=== PATIENT | male | born 1980 | race Caucasian/White ===

== ENCOUNTER 2021-09-10 08:49 | Emergency (ER) | payer BC, OTHER ==
[~2021-09-10] VITALS: Ht 168.9 cm; Wt 80.7 kg
[2021-09-10 08:51] VITALS: BP 149/91
--- NOTE | 2021-09-10 08:58 | NUR ---
Pt ambulated to bed 12 with steady/even gait
--- NOTE | 2021-09-10 09:08 | NUR ---
40 Y/O M BIB SPOUSE FROM HOME, C/O SOB AND CP THAT STARTED LAST NIGHT WHILE PUTTING SON TO BED. PT REPORTS 4/10, SHARP/INTERMITTENT, NON-RADIATING PAIN TO STERNUM. PT STATES PAIN WORSENS WITH INHALATION. DENIES FEVER, CHILLS, COUGH, NAUSEA, VOMITING, DIARRHEA, ABDOMINAL PAIN. NO MEDS PRIOR TO ARRIVAL. DENIES ANYONE ELSE SICK IN THE HOUSEHOLD. CAP REFILL IMMEDIATE; SKIN PINK/WARM/DRY. 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 SPO2 99% ON ROOM AIR. BED LOCKED IN LOWEST POSITION, SIDE RAILS X1. PMH: DENIES NKA MED: DENIES
--- NOTE | 2021-09-10 09:13 | NUR ---
EMT at bedside for EKG
[2021-09-10] MEDS ORDERED: ASPIRIN 325 MG TAB PO ONE (09:30)
--- NOTE | 2021-09-10 09:31 | NUR ---
Lab at bedside
--- NOTE | 2021-09-10 09:36 | NUR ---
RAD at bedside
[2021-09-10 09:48] LABS: BASOPHILS % (AUTO) 0.5 % (0.0-2.0); EOSINOPHILS # (AUTO) 0.1 K/uL (0-0.4); EOSINOPHILS % (AUTO) 1.4 % (0.0-4.0); HEMATOCRIT 46.3 % (36-52); HEMOGLOBIN 15.8 g/dL (12.0-18.0); LYMPHOCYTES # (AUTO) 1.4 K/uL (2.0-11.5); LYMPHOCYTES % (AUTO) 24.7 % (20.5-51.1); MEAN CORPUSCULAR HEMOGLOBIN 29 pg (27-31); MEAN CORPUSCULAR HGB CONC 34 g/dL (33-37); MEAN CORPUSCULAR VOLUME 86.1 fL (80-94); MONOCYTES # (AUTO) 0.3 K/uL (0.8-1.0); NEUTROPHILS # (AUTO) 3.9 K/uL (1.8-7.7); NEUTROPHILS % (AUTO) 67.4 % (42.2-75.2); PLATELET COUNT (AUTO) 234 K/uL (140-450); RED BLOOD CELL COUNT(AUTO) 5.38 MIL/uL (4.20-6.10); RED CELL DISTRIBUTION WIDTH 13.9 % (11.6-13.7); WHITE BLOOD COUNT (AUTO) 5.8 K/uL (4.8-10.8)
[2021-09-10 10:09] LABS: ANION GAP 12.6 (8-16); CREATININE 1.1 mg/dL (0.6-1.3); POTASSIUM 3.6 mmol/L (3.5-5.1); TOTAL BILIRUBIN 1.1 mg/dL (0.0-1.0)
[2021-09-10 10:41] VITALS: BP 121/77
--- NOTE | 2021-09-10 10:48 | NUR ---
Patient discharged with v/s stable. Written and verbal after care instructions given and explained. Patient verbalized understanding. Ambulatory with steady gait. All questions addressed prior to discharge. Advised to follow up with PMD. Lab results, EKG results, and XRAY results provided to pt per request.
== END 2021-09-10 10:48 | disposition home or self-care (01) ==
LOC: MED 08:49
DX: R07.9 Chest pain, unspecified (principal); R06.02 Shortness of breath; K21.9 Gastro-esophageal reflux disease without esophagitis
CPT/HCPCS: 36415; 71045; 80053; 83690; 84484; 85025; 93005; 99285